=== PATIENT | female | born 1980 | race Caucasian/White ===

== ENCOUNTER 2021-12-20 14:26 | Outpatient (CLI) | payer OTHER | END 2021-12-20 14:37 | disposition home or self-care (01) | LOC: TOM 14:26 | PROVIDERS: ATTEND Chiropractor | DX: S06.5X0A Traumatic subdural hemorrhage without loss of consciousness, initial encounter (principal) ==

== ENCOUNTER 2024-10-08 11:58 | Emergency (ER) | payer OTHER ==
[~2024-10-08] VITALS: Ht 170.2 cm; Wt 65.8 kg
[2024-10-08] MEDS ORDERED: LEVOTHYROXINE25 MCG (12:12)
[2024-10-08] MEDS ORDERED: CELEXA10 MG (12:13)
[2024-10-08] MEDS ORDERED: 0.9 % SODIUM CHLORIDE 1,000 ML IV ONE (13:00)
[2024-10-08] MEDS ORDERED: PANTOPRAZOLE SODIUM 40 MG/VIAL VIAL IV PUSH ONE (13:00)
[2024-10-08] MEDS ORDERED: ONDANSETRON HCL 2 MG/ML VIAL IV ONE (13:00)
[2024-10-08] MEDS ORDERED: ONDANSETRON HCL 2 MG/ML VIAL ONE (13:07)
[2024-10-08 13:53] LABS: BASO % 0.3 % (0.1-1.2); EOS # 0.01 (0.04-0.54); EOS % 0.2 % (0.7-7.0); HEMATOCRIT 33.6 % (34.1-44.9); LYMPH # 1.53 (1.18-3.74); LYMPH % 26.7 % (19.3-53.1); MEAN CORPUSCULAR HEMOGLOBIN 27.8 pg (25.6-32.2); MONO # 0.54 (0.24-0.82); MONO % 9.4 % (4.7-12.5); NEUT # 3.61 (1.56-6.13); NEUT % 62.9 % (34.0-71.1); PLATELET COUNT 255 K/uL (163-369); RED BLOOD COUNT 3.95 M/uL (3.93-5.22); RED CELL DISTRIBUTION WIDTH 15.8 % (11.6-14.4)
[2024-10-08 14:35] LABS: ALBUMIN 3.5 gm/dL (3.4-5.0); BILIRUBIN TOTAL 0.45 mg/dL (0.3-1.2); CALCIUM 8.6 mg/dL (8.5-10.1); CREATININE SERUM 0.68 mg/dL (0.55-1.02); GFR 93.99; GLOBULINA 3.4 G/DL (2.4-3.5); POTASSIUM 4.96 mEq/L (3.5-5.1); TOTAL PROTEIN 6.9 gm/dL (6.4-8.2)
[2024-10-08 14:48] LABS: COVID-19 AG NEGATIVE (NEGATIVE); INFLUENZA A AG NEGATIVE (NEGATIVE); INFLUENZA B AG NEGATIVE (NEGATIVE)
== END 2024-10-08 16:38 | disposition home or self-care (01) ==
LOC: ER 12:05
PROVIDERS: General Practice
DX: B34.9 Viral infection, unspecified (principal); Z20.822 Contact with and (suspected) exposure to COVID-19